=== PATIENT | female | born 1990 | race Caucasian/White ===

== ENCOUNTER 2020-12-07 10:05 | Emergency (ER) | payer MEDICAID, OTHER ==
[~2020-12-07] VITALS: Ht 154.9 cm; Wt 54.7 kg
[2020-12-07 10:12] VITALS: BP 124/88
[2020-12-07] MEDS ORDERED: GABAPENTIN 300 MG CAPSULE ONE (10:27)
[2020-12-07] MEDS ORDERED: GABAPENTIN 300 MG CAPSULE PO ONE (10:30)
== END 2020-12-07 11:00 | disposition home or self-care (01) ==
LOC: ED 10:35
DX: M79.672 Pain in left foot (principal); M79.671 Pain in right foot; M79.642 Pain in left hand; M79.641 Pain in right hand; Z76.0 Encounter for issue of repeat prescription; E11.9 Type 2 diabetes mellitus without complications
CPT/HCPCS: 82962; 99281; 99282